=== PATIENT | female | born 1940 | race Caucasian/White ===

== ENCOUNTER → 2023-07-06 10:54 | Outpatient (REF) | payer OTHER, SELFPAY | LOC: RAD 10:54 | PROVIDERS: ATTENDING PHYSICIAN Physician Assistant | DX: M54.50 Low back pain, unspecified (principal) | CPT/HCPCS: 72110 ==

== ENCOUNTER → 2023-12-06 18:32 | Outpatient (REF) | payer OTHER, SELFPAY | LOC: WDC 18:32 | PROVIDERS: ATTENDING PHYSICIAN Physician Assistant | DX: Z12.31 Encounter for screening mammogram for malignant neoplasm of breast (principal) | CPT/HCPCS: 77063; 77067 ==

== ENCOUNTER 2024-01-13 09:06 | Outpatient (RCR) | payer OTHER, SELFPAY | END 2024-01-13 23:59 | disposition home or self-care (01) | LOC: RPT 09:06 | PROVIDERS: ATTENDING PHYSICIAN Physician Assistant | DX: M54.50 Low back pain, unspecified (principal); Z73.6 Limitation of activities due to disability | CPT/HCPCS: 97112; 97162 ==

== ENCOUNTER → 2024-01-28 11:57 | Outpatient (REF) | payer OTHER, SELFPAY | LOC: MRI 3T 11:57 | PROVIDERS: ATTENDING PHYSICIAN Physician Assistant | DX: M54.50 Low back pain, unspecified (principal); R93.7 Abnormal findings on diagnostic imaging of other parts of musculoskeletal system | CPT/HCPCS: 72148 ==

== ENCOUNTER 2024-02-14 18:13 | Outpatient (RCR) | payer OTHER, SELFPAY | END 2024-02-14 23:59 | disposition home or self-care (01) | LOC: RPT 18:13 | PROVIDERS: ATTENDING PHYSICIAN Physician Assistant | DX: M54.50 Low back pain, unspecified (principal); Z73.6 Limitation of activities due to disability | CPT/HCPCS: 97110; 97112 ==

== ENCOUNTER 2024-03-02 11:20 | Outpatient (RCR) | payer OTHER, SELFPAY | END 2024-03-02 23:59 | disposition home or self-care (01) | LOC: RPT 11:20 | PROVIDERS: ATTENDING PHYSICIAN Physician Assistant | DX: M54.51 Vertebrogenic low back pain (principal); Z73.6 Limitation of activities due to disability | CPT/HCPCS: 97110 ==

== ENCOUNTER → 2024-10-11 16:54 | Outpatient (REF) | payer OTHER, SELFPAY | LOC: RAD 16:54 | PROVIDERS: ATTENDING PHYSICIAN Physician Assistant | DX: R05.8 Other specified cough (principal); R53.83 Other fatigue | CPT/HCPCS: 71046 ==

== ENCOUNTER 2025-02-14 19:17 | Emergency (ER) | payer OTHER, SELFPAY ==
[2025-02-14 19:29] VITALS: BP 150/112
--- NOTE | 2025-02-14 21:29 | ED.GENMED ---
History of Present Illness
General
Chief Complaint: Musculo-Skeletal Complaint
Source: patient and family
Exam Limitations: none
Time Seen by Provider: 02/14/25 20:30
Nursing documentation reviewed up to this point in time: agreed with
History of Present Illness
History of Present Illness:
84-year-old female presenting to the emergency department with concerns of left foot pain after getting tripped up on her threshold at home. Difficulty with ambulating secondary to pain since. Pain is mainly mainly to the lateral portion of the
foot.
Past History
Past History
ED Past Medical History: HTN
ED Past Surgical History: None
Social History
Tobacco: Non-smoker
Alcohol: None
Drug: None
Living: alone
Review of Systems
Review of Systems
Allergies reviewed?: Yes
All Other Systems: ROS reviewed and negative except as documented in HPI and ROS
Phy Exam
Physical Exam
Physical Exam:
GENERAL: Alert , in no apparent distress
EYE: pupils equal and reactive
NECK: Supple, no significant adenopathy.
ENT: o/p clr, mmm.
CARDIAC: Regular rate and rhythm .
LUNGS: Clear breath sounds bilaterally, no acute respiratory distress, no wheezes/rales/rhonchi
ABDOMEN: Soft, without focal tenderness, no r/g, no cvat
NEUROLOGICAL: Alert and oriented, no focal neuro deficits
SKIN: Warm and dry, skin intact.
MUSCULOSKELETAL: Swelling to the lateral aspect of left foot mainly to the base of the fifth metatarsal. No pain to the remainder of the foot ankle or toes. Well perfused.
PSYCH: Normal and appropriate interaction.
Course
Orders/Labs/Results
Orders:
Orders
02/14/25 19:31
Foot, Left 3 View [CR Foot - Left Min 3 Views] Urgent
Comment:
Reason For Exam: pain post injury
02/14/25 21:21
Crutches-Treatment ONCE
Ortho Boot Left- Treatment ONCE
Short or tall?: Short
Vital Signs
Initial and Last Documented VS:
Initial Vital Signs
Temp Pulse Resp BP Pulse Ox
98.2 F 96 16 150/112 97
02/14/25 19:29 02/14/25 19:29 02/14/25 19:29 02/14/25 19:29 02/14/25 19:29
Last Documented Vital Signs
Temp Pulse Resp BP Pulse Ox
98.2 F 96 16 150/112 97
02/14/25 19:29 02/14/25 19:29 02/14/25 19:02/14/25 19:29 02/14/25 19:29
MDM/Problems Addressed
MDM/Problems Addressed:
84-year-old female presenting to the emergency department today with concerns of discomfort to the lateral left foot after inversion injury prior to arrival. Pain is to the base of the fifth metatarsal. Patient does not have a fracture to the
proximal fifth metatarsal. Case discussed with Ortho. Fracture seems to be right at the threshold between a Gibbs and pseudo Gibbs fracture. This was discussed with the patient. It was advised to be nonweightbearing. She had some concerns that
if she were splinted it may be somewhat troublesome at home. She does have help from her son may had significant limited mobility in the circumstance. The patient decided to use a boot but be limited weightbearing with crutches. Advised for close
follow-up with podiatry. Return precautions given.
*Pulse Oximetry
SaO2: 97
Oxygen Mode of Delivery: Room air
Patient hypoxic: no (97)
*Critical Care Note
Total Time (30-74mins, 75-104mins- exclusive of procedures): Not Applicable
ED Attending Note
-
Portions of this chart may have been created with voice recognition software.� Occasional wrong word or��sound alike� substitutions may have occurred due to the inherent limitations of voice recognition software.
Discharge Plan
Departure
Patient Disposition: Home (Routine Discharge)
Date of Disposition: 02/14/25
Time of Disposition: 21:32
Patient with high blood pressure during this ER visit?: No
Condition: Good
Covid-19: Not Applicable
Discharge Problem:
Fracture of fifth metatarsal bone
Instructions: Foot Fracture ED
Prescriptions:
No Action
cephalexin 500 MG capsule
500 mg PO BID Qty: 14 0RF
Referrals:
Rebecca Rivera PA-C [Family Provider, Internal Medicine]
Derik Brandon DPM [Active, Podiatry] - Follow up in 2-3 days
iBb Alvarado DPM [Specified Professional Personl, Podiatry] - Follow up in 2-3 days
Activity Restrictions/Additional Instructions:
You came to the emergency department today with concerns of foot pain. You are found to have a broken bone of your fifth metatarsal. This will need very close follow-up. Please be nonweightbearing until follow-up. Return for any worsening, new
or concerning symptoms.
Interventions
Interventions:
*Risk Screen - Suicide Last Done: 02/14/25 19:29
*Neglect/Abuse Screening Last Done: 02/14/25 19:29
Discharge Date and Time
Print Language: [id number]
[2025-02-14 21:44] VITALS: BP 192/74
== END 2025-02-14 21:46 | disposition home or self-care (01) ==
LOC: EMR 19:17
PROVIDERS: EMERGENCY PHYSICIAN Emergency Medicine; FAMILY PHYSICIAN Physician Assistant
DX: S92.355A Nondisplaced fracture of fifth metatarsal bone, left foot, initial encounter for closed fracture (principal); W22.8XXA Striking against or struck by other objects, initial encounter; I10 Essential (primary) hypertension
CPT/HCPCS: 99283; 73630